=== PATIENT | female | born 1990 | race Caucasian/White ===

== ENCOUNTER 2017-11-07 10:09 | Emergency (ER) | payer MEDICAID ==
--- NOTE | 2017-11-07 10:23 | Emergency Department Record ---
History of Present Illness - General Chief complaint: Female Urogenital Problem Stated complaint: VAGINAL PAIN Time Seen by Provider: 11/07/17 10:19 Source: Patient Mode of Arrival: Ambulatory Limitations: No limitations - History of Present Illness Initial comments: 27 yo female presents with vaginal pain. She reports she has had similar symptoms over the last four years. The most recent episode started about 2-3 days ago. She has chronic sharp pain that started after the first delivery. She states an IUD was inserted too far and injured her. 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 No fever. She is currently on her menstrual cycle. She has not had an US since her pregnancies. She also has a hemorrhoid that causes pain. She has had a mild chronic whitish discharge. The patient reports she has scheduled a [facility] appointment in December in [place]. Complaint: Other (Vaginal pain) -: Month(s) (1) Location: Perineum Radiation: Other Severity: Moderate Quality: Sharp Consistency: Intermittent Improves with: None Worsens with: [place] Associated Symptoms: Other - Related Data Additional Female Hx Detail: Contraception Previous Rx's Medication Instructions Recorded Docusate Sodium [Colace] 100 mg PO DAILY #30 cap 11/07/17 Hydrocortisone Acetate [Anusol-Hc] 25 mg RC DAILY #14 supp.rect 11/07/17 Shelbie Merino [Hemorrhoidal 1 each TP BID #60 med..pad 11/07/17 Medicated Wipes] Allergies Allergy/AdvReac Type Severity Reaction Status Date / Time No Known Allergies Allergy PT UNSURE Verified 11/07/17 10:16 OF REACTION Review of Systems Constitutional: Denies: Chills, Fever, Malaise, Weakness Eyes: Denies: Eye discharge ENT: Denies: Congestion, Throat pain Respiratory: Denies: Cough, Dyspnea, Hemoptysis Cardiovascular: Denies: Chest pain, Syncope Endocrine: Denies: Fatigue Gastrointestinal: Reports: Abdominal pain. Denies: Diarrhea, Hematemesis, Hematochezia, Nausea, Vomiting Genitourinary: Reports: As per HPI, Dysuria. Denies: Frequency Musculoskeletal: Denies: Back pain Skin: Denies: Bruising, Change in color, Rash Neurological: Denies: Headache, Numbness, Weakness Psychiatric: Denies: Anxiety Hematological/Lymphatic: Denies: Easy bleeding, Easy bruising Physical Exam - General General Appearance: Alert, Oriented x3, Cooperative, No acute distress Limitations: No limitations - Head Head exam: Atraumatic, Normal inspection - Eye Eye exam: Normal appearance. negative: Conjunctival injection - ENT ENT exam: Normal exam Ear exam: Normal external inspection Nasal Exam: Normal inspection Mouth exam: Normal external inspection - Neck Neck exam: Normal inspection - GI/Abdominal GI/Abdominal exam: Soft. negative: Distended, Guarding, Rebound, Rigid - Rectal Rectal exam: Hemorrhoids (non thrombosed, non bleeding) - exam: Adnexal tenderness (L), Adnexal tenderness (R), Normal external exam, Vaginal bleeding, Vaginal discharge (thin white). negative: Adnexal mass (L), Adnexal mass (R), Cervical discharge, cervical motion tenderness, Vaginal erythema - Back Back exam: Reports: Normal inspection - Neurological Neurological exam: Alert, Oriented X3 - Psychiatric Psychiatric exam: Normal affect, Normal mood - Skin Skin exam: Dry, Intact, Normal color, Warm Course - Reevaluation(s) Reevaluation #1: The labs were negative The UA is negative Wet prep and HCG are negative Radiology was contacted. The patient is to return to the ED at 9:30am on Thursday for US. She was given instructions for prep prior to arrival We discussed being seen sooner if worse She was provided prescriptions for her hemorrhoid 11/07/17 11:56 Disposition Disposition: Discharge Clinical Impression: Pelvic pain Disposition: Home, Self-Care Condition: (1) Good Instructions: Hemorrhoids (ED), Pelvic Pain in Women (ED) Additional Instructions: Call your doctor on Thursday to be seen this week Return at 9:30am on Thursday for an US Drink 2 large glasses of water starting at 9. Do not urinate prior to the US Motrin as directed for pain Prescriptions: Docusate Sodium [Colace] 100 mg PO DAILY #30 cap Hydrocortisone Acetate [Anusol-Hc] 25 mg RC DAILY #14 supp.rect Witch Angelique [Hemorrhoidal Medicated Wipes] 1 each TP BID #60 med..pad Forms: Patient Portal Access Time of Disposition: 11:17 Quality - Quality Measures Quality Measures: N/A - Blood Pressure Screening Does Patient Have Any of the Following: No Blood Pressure Classification: Pre-Hypertensive BP Reading Systolic Measurement: 124 Diastolic Measurement: 87 Screening for High Blood Pressure: < Pre-Hypertensive BP, F/U Documented > [ G8950] Pre-Hypertensive Follow-up Interventions: Referral to alternative/primary care provider.
[2017-11-07] MEDS ORDERED: IBUPROFEN 600 MG TABLET PO ONE (10:36)
[2017-11-07 10:59] LABS: URINE APPEARANCE CLEAR; URINE BILIRUBIN NEGATIVE (NEGATIVE); URINE BLOOD SMALL (NEGATIVE); URINE COLOR YELLOW; URINE GLUCOSE (UA) NEGATIVE (NEGATIVE); URINE KETONE NEGATIVE (NEGATIVE); URINE LEUKOCYTE ESTERASE NEGATIVE (NEGATIVE); URINE NITRITE NEGATIVE (NEGATIVE); URINE PROTEIN NEGATIVE (NEGATIVE); URINE UROBILINOGEN 0.2 E.U./dL (0.20 - 1.00)
[2017-11-07 11:03] LABS: HCG,QUALITATIVE URINE NEGATIVE (NEGATIVE)
[2017-11-07 11:08] LABS: URINE WBC 0 - 2 (0-2/hpf)
[2017-11-07 11:09] LABS: URINE BACTERIA NONE SEEN; URINE MUCUS LIGHT
--- NOTE | 2017-11-07 16:51 | Emergency Department Record ---
History of Present Illness - General Chief complaint: Female Urogenital Problem Stated complaint: VAGINAL PAIN Time Seen by Provider: 11/07/17 10:19 Source: Patient Mode of Arrival: Ambulatory Limitations: No limitations - History of Present Illness Onset/Timin -: Month(s) (1) Location: Perineum Radiation: Other Severity: Moderate Severity scale (1-10): 8 Quality: Sharp Consistency: Intermittent Improves with: None Worsens with: [place] Patient : No Associated Symptoms: Other - Related Data Previous Rx's Medication Instructions Recorded Docusate Sodium [Colace] 100 mg PO DAILY #30 cap 11/07/17 Hydrocortisone Acetate 30 mg RC Q12H #15 supp.rect 11/07/17 Hydrocortisone Acetate [Anusol-Hc] 25 mg RC DAILY #14 supp.rect 11/07/17 Metronidazole [Flagyl] 500 mg PO BID #14 tablet 11/07/17 Witch Angelique [Hemorrhoidal 1 each TP BID #60 med..pad 11/07/17 Medicated Wipes] Allergies Allergy/AdvReac Type Severity Reaction Status Date / Time No Known Allergies Allergy PT UNSURE Verified 11/07/17 10:16 OF REACTION Travel Screening - Travel/Exposure Within Last 30 Days Have you traveled within the last 30 days?: No - Travel/Exposure Within Last Year Have you traveled outside the [place] in the last year?: No - Additonal Travel Details Have you been exposed to anyone with a communicable illness?: No - Travel Symptoms Symptom Screening: None Review of Systems Constitutional: Denies: Chills, Fever, Malaise, Weakness Eyes: Denies: Eye discharge ENT: Denies: Congestion, Throat pain Respiratory: Denies: Cough, Dyspnea, Hemoptysis Cardiovascular: Denies: Chest pain, Syncope Endocrine: Denies: Fatigue Gastrointestinal: Reports: Abdominal pain. Denies: Diarrhea, Hematemesis, Hematochezia, Nausea, Vomiting Genitourinary: Reports: As per HPI, Dysuria. Denies: Frequency Musculoskeletal: Denies: Back pain Skin: Denies: Bruising, Change in color, Rash Neurological: Denies: Headache, Numbness, Weakness Psychiatric: Denies: Anxiety Hematological/Lymphatic: Denies: Easy bleeding, Easy bruising Past Medical History - SOCIAL HISTORY Smoking Status: Never smoker Alcohol Use: None Drug Use: None - RESPIRATORY Hx Respiratory Disorders: No - CARDIOVASCULAR Hx Cardio Disorders: No - NEURO Hx Neuro Disorders: No - GI Hx GI Disorders: No - Hx Genitourinary Disorders: No - ENDOCRINE Hx Endocrine Disorders: No - MUSCULOSKELETAL Hx Musculoskeletal Disorders: No - PSYCH Hx Psych Problems: Yes Hx Anxiety: Yes - HEMATOLOGY/ONCOLOGY Hx Hematology/Oncology Disorders: No Family Medical History Any Significant Family History?: Yes Family Hx Comment (NOT TO BE USED IN PLACE OF ITEMS BELOW): Aunt is schizophrenic and bipolar Hx Anxiety: Father, Mother, Brother/Sister Hx Cancer: Mother, Grandparents Hx Depression: Father, Mother, Brother/Sister Hx Diabetes: Father, Mother, Grandparents Hx Heart Disease: Grandparents Physical Exam - General Limitations: No limitations Course Vital Signs 11/07/17 11/07/17 10:19 11:39 Temperature 98.1 F Pulse Rate 78 69 Respiratory 18 18 Rate Blood Pressure 144/99 124/87 Pulse Ox 100 98 - Reevaluation(s) Reevaluation #1: 11/07/17 16:50 Wet prep demonstrated clue cells The patient was called and informed about BV A prescription for Flagyl was called into her pharmacy Medical Decision Making - Lab Data Lab Results 11/07/17 11/07/17 Range/Units 10:50 10:50 Urine Color Yellow Urine Appearance Clear Urine pH 6.0 (5.0-8.0) Ur Specific [place] 1.025 (1.002-1.030) Urine Protein Negative (NEGATIVE) Urine Glucose (UA) Negative (NEGATIVE) Urine Ketones Negative (NEGATIVE) Urine Blood Small H (NEGATIVE) Urine Nitrite Negative (NEGATIVE) Urine Bilirubin Negative (NEGATIVE) Urine Urobilinogen 0.2 (0.20 - 1.00) E.U./dL Ur Leukocyte Esterase Negative (NEGATIVE) Urine RBC 3 - 6 (NONE SEEN) Urine WBC 0 - 2 (0-2/hpf) Ur Epithelial Cells 7 - 10 (FEW) Urine Bacteria None seen Urine Mucus Light Urine HCG, Qual Negative (NEGATIVE) Wet Prep (NONE SEEN) Disposition Disposition: Discharge Clinical Impression: Pelvic pain, Bacterial vaginosis Disposition: Home, Self-Care Condition: (1) Good Instructions: Hemorrhoids (ED), Pelvic Pain in Women (ED) Additional Instructions: Call your doctor on Thursday to be seen this week Return at 9:30am on Thursday for an US Drink 2 large glasses of water starting at 9. Do not urinate prior to the US Motrin as directed for pain Prescriptions: Docusate Sodium [Colace] 100 mg PO DAILY #30 cap Hydrocortisone Acetate [Anusol-Hc] 25 mg RC DAILY #14 supp.rect Hydrocortisone Acetate 30 mg RC Q12H #15 supp.rect Metronidazole [Flagyl] 500 mg PO BID #14 tablet Witch Angelique [Hemorrhoidal Medicated Wipes] 1 each TP BID #60 med..pad Forms: Patient Portal Access Time of Disposition: 16:51 Quality - Quality Measures Quality Measures: N/A - Blood Pressure Screening Does Patient Have Any of the Following: No Blood Pressure Classification: Pre-Hypertensive BP Reading Systolic Measurement: 124 Diastolic Measurement: 87 Screening for High Blood Pressure: < Pre-Hypertensive BP, F/U Documented > [ G8950] Pre-Hypertensive Follow-up Interventions: Referral to alternative/primary care provider.
[2017-11-09 15:18] LABS: GC SPECIMEN TYPE Vaginal
== END 2017-11-07 11:40 | disposition home or self-care (01) ==
LOC: ER 10:09
DX: N76.0 Acute vaginitis (principal); R01.2 Other cardiac sounds; K64.9 Unspecified hemorrhoids
CPT/HCPCS: 99284 ×2; 81001; 81025; Q0111; 87210

== ENCOUNTER 2017-11-08 07:27 | Emergency (ER) | payer MEDICAID ==
[2017-11-08] MEDS ORDERED: KETOROLAC 30 MG/ML VIAL IVP ONE (07:29)
[2017-11-08] MEDS ORDERED: ACETAMINOPHEN 1,000 MG/100 ML BTL IVPB ONE (07:39)
[2017-11-08] MEDS ORDERED: MORPHINE SULFATE 10 MG/ML VIAL IVP ONE ×2 (07:39→08:14)
--- NOTE | 2017-11-08 07:39 | Emergency Department Record ---
History of Present Illness - General Stated complaint: ABD PAIN Time Seen by Provider: 11/08/17 07:28 Source: Patient Mode of Arrival: Ambulatory Limitations: No limitations - History of Present Illness Initial comments: 27 yo female presents with pelvic pain. She has had pain on and off for 4 years. The pain increased the last 2-3 days. She was seen in the ED yesterday. Her testing demonstrated BV on wet prep otherwise negative. Negative for . Her pain was well controlled until early this morning around 4am. The pain is sharp and greatly increased. No fever. No bleeding. She feels like the pain is in the vaginal area in the middle or slightly to the left. She is currently on her menstrual cycle. No history of renal stones or ovarian cysts. MD Complaint: Pelvic pain -: Days(s) Location: Other (Pelvic) Severity: Severe Quality: Aching, Sharp Consistency: Constant Improves with: None Worsens with: None Associated Symptoms: Denies other symptoms - Related Data Previous Rx's Medication Instructions Recorded Docusate Sodium [Colace] 100 mg PO DAILY #30 cap 11/07/17 Hydrocortisone Acetate 30 mg RC Q12H #15 supp.rect 11/07/17 Hydrocortisone Acetate [Anusol-Hc] 25 mg RC DAILY #14 supp.rect 11/07/17 Metronidazole [Flagyl] 500 mg PO BID #14 tablet 11/07/17 Witch Angelique [Hemorrhoidal 1 each TP BID #60 med..pad 11/07/17 Medicated Wipes] Allergies Allergy/AdvReac Type Severity Reaction Status Date / Time No Known Allergies Allergy PT UNSURE Verified 11/07/17 10:16 OF REACTION Review of Systems Constitutional: Denies: Chills, Fever, Malaise, Weakness Eyes: Denies: Eye discharge ENT: Denies: Congestion, Throat pain Respiratory: Denies: Cough Cardiovascular: Denies: Chest pain, Syncope Endocrine: Denies: Fatigue Gastrointestinal: Reports: Abdominal pain. Denies: Diarrhea, Nausea, Vomiting Genitourinary: Denies: Dysuria Musculoskeletal: Denies: Arthralgia, Back pain, Myalgia Skin: Denies: Bruising, Change in color, Rash Neurological: Denies: Numbness, Weakness Psychiatric: Denies: Anxiety Hematological/Lymphatic: Denies: Blood Clots, Easy bleeding, Easy bruising Past Medical History - SOCIAL HISTORY Smoking Status: Never smoker Drug Use: None - RESPIRATORY Hx Respiratory Disorders: No - CARDIOVASCULAR Hx Cardio Disorders: No - NEURO Hx Neuro Disorders: No - GI Hx GI Disorders: No - Hx Genitourinary Disorders: No - ENDOCRINE Hx Endocrine Disorders: No - MUSCULOSKELETAL Hx Musculoskeletal Disorders: No - PSYCH Hx Psych Problems: Yes Hx Anxiety: Yes - HEMATOLOGY/ONCOLOGY Hx Hematology/Oncology Disorders: No Family Medical History Family Hx Comment (NOT TO BE USED IN PLACE OF ITEMS BELOW): Aunt is schizophrenic and bipolar Hx Anxiety: Father, Mother, Brother/Sister Hx Cancer: Mother, Grandparents Hx Depression: Father, Mother, Brother/Sister Hx Diabetes: Father, Mother, Grandparents Hx Heart Disease: Grandparents Physical Exam - General General Appearance: Alert, Oriented x3, Cooperative, Anxious Limitations: No limitations - Head Head exam: Atraumatic, Normal inspection - Eye Eye exam: Normal appearance. negative: Conjunctival injection, Scleral icterus - ENT ENT exam: Normal exam Ear exam: Normal external inspection Nasal Exam: Normal inspection Mouth exam: Normal external inspection - Neck Neck exam: Normal inspection - Respiratory Respiratory exam: Normal lung sounds bilaterally. negative: Respiratory distress - Cardiovascular Cardiovascular Exam: Regular rate, Normal rhythm, Normal heart sounds - GI/Abdominal GI/Abdominal exam: Soft, Tenderness (tender deep pelvic midline to left, soft) - Extremities Extremities exam: Normal inspection - Back Back exam: Denies: CVA tenderness (R), CVA tenderness (L) - Neurological Neurological exam: Alert, Oriented X3 - Psychiatric Psychiatric exam: Normal affect, Normal mood - Skin Skin exam: Dry, Intact, Normal color, Warm Course - Reevaluation(s) Reevaluation #1: 11/08/17 07:34 EMR reviewed from yesterday. Negative HCG Wet prep positive for clue cells 11/08/17 07:44 I recommend US this morning given the return of pain. She agrees with transfer to [facility] for US evaluation [facility] was contacted for transfer Dr Bates of the [facility] ED accepts the patient for US and further work up of the pelvic pain. We discussed possible [employer] consult if needed or CT if needed as well. 11/08/17 08:01 CBC reviewed. HGB is 14 Medical Decision Making - Lab Data Result diagrams: 11/08/17 07:40 11/08/17 07:40 Disposition Disposition: Transfer Clinical Impression: Pelvic pain Disposition: Acute Care Hospital Transfer Transfer To: [facility] Reason For Transfer: Pelvic Pain Accepting Physician: Paulo Time Discussed w/Accepting Physician: 07:48 Condition: (2) Stable Time of Disposition: 07:48 Quality - Quality Measures Quality Measures: N/A - Blood Pressure Screening Does Patient Have Any of the Following: No Blood Pressure Classification: Hypertensive Reading Systolic Measurement: 146 Diastolic Measurement: 77 Screening for High Blood Pressure: < Pre-Hypertensive BP, F/U Documented > [ G8950] Pre-Hypertensive Follow-up Interventions: Referral to alternative/primary care provider.
[2017-11-08 07:54] LABS: BASO % 0.6 % (0-6); EOS % 3.8 % (0-6); GRAN % 51.2 % (47-80); HEMATOCRIT 44.1 % (35.0-47.0); HEMOGLOBIN 14.6 gm/dl (11.6-16.0); LYMPH % 38.6 % (16-45); MEAN CELL VOLUME 89.8 fl (81-97); MEAN CORPUSCULAR HEMOGLOBIN 29.7 pg (27-33); MEAN CORPUSCULAR HGB CONC 33.1 g/dl (32-36); MEAN PLATELET VOLUME 10.4 fl (7.4-10.4); MONO % 5.8 % (0-9); PLATELET COUNT 299 K/uL (130-400); RED BLOOD COUNT 4.91 M/uL (3.80-5.40); RED CELL DISTRIBUTION WIDTH 12.5 % (11.5-14.5); WHITE BLOOD COUNT W/O DIFF 6.3 K/uL (4.2-12.2)
[2017-11-08 08:08] LABS: BLOOD UREA NITROGEN 10 mg/dL (6-20); CREATININE 0.7 mg/dL (0.5-0.9); EST GLOMERULAR FILTRATION RATE > 60 mL/min
[2017-11-08 08:11] LABS: GLUCOSE,RANDOM 86 mg/dL (74-109)
== END 2017-11-08 08:26 | disposition short-term general hospital (02) ==
LOC: ER 07:27
DX: R10.2 Pelvic and perineal pain (principal)
CPT/HCPCS: 99285 ×2; 96365; 96375; 85025; 80048; 84703; J1885; J2270

== ENCOUNTER 2017-12-05 11:11 | Emergency (ER) | payer MEDICAID ==
--- NOTE | 2017-12-05 11:28 | Emergency Department Record ---
History of Present Illness - General Chief complaint: Nausea, Vomiting, Diarrhea Stated complaint: NAUSEA,DIZZY Source: Patient Mode of Arrival: Ambulatory Limitations: No limitations - History of Present Illness Initial comments: 27 yo female presents with four days of nausea, diarrhea, hot flashes. She has also had an itchy rash on the chest. She started prednisone yesterday. The rash is improving. No vomiting. No fevers or abdominal pain. No dysuria. No sore throat. No blood in the vomit or diarrhea. She hot flashes seem to correlate with the episodes of nausea and diarrhea. She has had some intermittent left flank pain. None currently. MD complaint: Diarrhea, Nausea, Vomiting, Other (hot flashes) -: Days(s) (4) Description of Vomiting: Watery Description of Diarrhea: Water Location: Flank (Left) Radiation: None Severity: Mild Quality: Other Consistency: Intermittent Improves with: None Worsens with: Eating Context: Other Associated Symptoms: Nausea/vomiting, Other (diarrhea, rash. hot flashes) - Related Data Previous Rx's Medication Instructions Recorded Ondansetron [Zofran Odt] 4 mg PO Q8H #15 tab.rapdis 12/05/17 Allergies Allergy/AdvReac Type Severity Reaction Status Date / Time cephalexin monohydrate Allergy Mild nausea Verified 12/05/17 11:20 [From Keflex] Review of Systems Constitutional: Reports: Malaise. Denies: Chills, Fever, Night sweats, Weakness Eyes: Denies: Eye discharge, Eye pain, Vision change ENT: Denies: Congestion, Throat pain Respiratory: Denies: Cough, Dyspnea Cardiovascular: Denies: Chest pain, Dyspnea on exertion, Edema Endocrine: Reports: Fatigue. Denies: Polydipsia, Polyuria Gastrointestinal: Reports: As per HPI, Diarrhea, Nausea. Denies: Abdominal pain , Constipation, Hematemesis, Hematochezia, Vomiting Genitourinary: Denies: Dysuria Musculoskeletal: Reports: Back pain (left sided). Denies: Arthralgia, Myalgia Skin: Reports: As per HPI, Change in color, Rash. Denies: Bruising Neurological: Denies: Headache, Numbness, Weakness Psychiatric: Reports: Anxiety Hematological/Lymphatic: Denies: Easy bleeding, Easy bruising Past Medical History - SOCIAL HISTORY Smoking Status: Never smoker Drug Use: None - RESPIRATORY Hx Respiratory Disorders: No - CARDIOVASCULAR Hx Cardio Disorders: No - NEURO Hx Neuro Disorders: No - GI Hx GI Disorders: No - Hx Genitourinary Disorders: No - ENDOCRINE Hx Endocrine Disorders: No - MUSCULOSKELETAL Hx Musculoskeletal Disorders: No - PSYCH Hx Psych Problems: Yes Hx Anxiety: Yes - HEMATOLOGY/ONCOLOGY Hx Hematology/Oncology Disorders: No Family Medical History Family Hx Comment (NOT TO BE USED IN PLACE OF ITEMS BELOW): Aunt is schizophrenic and bipolar Hx Anxiety: Father, Mother, Brother/Sister Hx Cancer: Mother, Grandparents Hx Depression: Father, Mother, Brother/Sister Hx Diabetes: Father, Mother, Grandparents Hx Heart Disease: Grandparents Physical Exam - General General Appearance: Alert, Oriented x3, Cooperative, No acute distress Limitations: No limitations - Head Head exam: Normal inspection - Eye Eye exam: Normal appearance, PERRL. negative: Conjunctival injection, Scleral icterus - ENT ENT exam: Normal exam, Mucous membranes moist Ear exam: Normal external inspection Nasal Exam: Normal inspection Mouth exam: Normal external inspection Teeth exam: Normal inspection Throat exam: Normal inspection, Tonsillar erythema. negative: Tonsillomegaly - Neck Neck exam: Normal inspection, Full ROM. negative: Tenderness - Respiratory Respiratory exam: Normal lung sounds bilaterally. negative: Respiratory distress - Cardiovascular Cardiovascular Exam: Regular rate, Normal rhythm, Normal heart sounds. negative : Tachycardia - GI/Abdominal GI/Abdominal exam: Soft. negative: Distended, Guarding, Rebound, Rigid, Tenderness - Rectal Rectal exam: Deferred - exam: Deferred - Extremities Extremities exam: Normal inspection. negative: Calf tenderness, Full ROM, Pedal edema, Tenderness - Back Back exam: Reports: Normal inspection. Denies: CVA tenderness (R), CVA tenderness (L) - Neurological Neurological exam: Alert, Oriented X3 - Psychiatric Psychiatric exam: Normal affect, Normal mood - Skin Skin exam: Dry, Intact, Rash, Warm. negative: Normal color Distribution of rash: Chest Description of rash: Erythematous, Macular, Papular, Urticarial. negative: Crusting, Discharge, Indurated, Petechial, Purpuic, Tenderness, Vesicular Course - Reevaluation(s) Reevaluation #1: 12/05/17 11:53 HCG is negative 12/05/17 12:15 The labs were reviewed No acute changes on the labs The nausea is well controlled UA is negative for signs of acute infection 12/05/17 12:[address] scan and US from 11/08 were reviewed from [facility]. Both tests were negative for acute process. No indication for emergent CT today with the possible radiation exposure. Recommend follow renal US if the left flank pain continues. 12/05/17 12:41 12/05/17 13:03 The patient is doing much better. Well controlled nausea. We discussed the results, reasons to return, and follow up. Rx for Zofran provided. Medical Decision Making - Lab Data Result diagrams: 12/05/17 11:40 12/05/17 11:40 Disposition Disposition: Discharge Clinical Impression: Nausea, Diarrhea, Urticaria Disposition: Home, Self-Care Condition: (1) Good Instructions: Acute Nausea and Vomiting (ED) Additional Instructions: Take the Zofran as needed for the nausea Rest and stay well hydrated Return if you have fever, pain, uncontrolled vomiting or any new concerns Follow up as scheduled with your doctor Prescriptions: Ondansetron [Zofran Odt] 4 mg PO Q8H #15 tab.rapdis Forms: Patient Portal Access Time of Disposition: 12:41 Quality - Quality Measures Quality Measures: N/A - Blood Pressure Screening Does Patient Have Any of the Following: No Blood Pressure Classification: Hypertensive Reading Systolic Measurement: 135 Diastolic Measurement: 96 Screening for High Blood Pressure: < Pre-Hypertensive BP, F/U Documented > [ G8950] Pre-Hypertensive Follow-up Interventions: Referral to alternative/primary care provider.
[2017-12-05] MEDS ORDERED: 0.9 % SODIUM CHLORIDE 1,000 ML BAG IV ONE (11:31)
[2017-12-05] MEDS ORDERED: ONDANSETRON HCL IV 4 MG/2 ML VIAL IVP ONE (11:31)
[2017-12-05 11:43] LABS: URINE APPEARANCE CLEAR; URINE BILIRUBIN NEGATIVE (NEGATIVE); URINE BLOOD MODERATE (NEGATIVE); URINE COLOR YELLOW; URINE GLUCOSE (UA) NEGATIVE (NEGATIVE); URINE KETONE NEGATIVE (NEGATIVE); URINE LEUKOCYTE ESTERASE NEGATIVE (NEGATIVE); URINE NITRITE NEGATIVE (NEGATIVE); URINE PROTEIN TRACE (NEGATIVE); URINE UROBILINOGEN 0.2 E.U./dL (0.20 - 1.00)
[2017-12-05 11:49] LABS: HEMATOCRIT 43.7 % (35.0-47.0); HEMOGLOBIN 14.4 gm/dl (11.6-16.0); MEAN CORPUSCULAR HEMOGLOBIN 29.3 pg (27-33); PLATELET COUNT 307 K/uL (130-400); RED BLOOD COUNT 4.91 M/uL (3.80-5.40); RED CELL DISTRIBUTION WIDTH 12.2 % (11.5-14.5); WHITE BLOOD COUNT W/O DIFF 11.1 K/uL (4.2-12.2)
[2017-12-05 11:51] LABS: URINE BACTERIA NONE SEEN; URINE WBC 0 - 2 (0-2/hpf)
[2017-12-05 11:52] LABS: HCG,QUALITATIVE URINE NEGATIVE (NEGATIVE); URINE MUCUS LIGHT
[2017-12-05 11:59] LABS: BLOOD UREA NITROGEN 15 mg/dL (6-20); CREATININE 0.6 mg/dL (0.5-0.9); EST GLOMERULAR FILTRATION RATE > 60 mL/min
[2017-12-05 12:00] LABS: PLATELET ESTIMATE NORMAL (NORMAL); TOTAL PROTEIN 8.5 g/dL (6.6-8.7)
[2017-12-05 12:02] LABS: GLUCOSE,RANDOM 123 mg/dL (74-109)
[2017-12-05 12:05] LABS: ALB/GLOB RATIO 1.4 (1.1-1.8); ALBUMIN 4.9 g/dL (4.0-5.0); ALKALINE PHOSPHATASE 41 U/L (35-104); ALT/SGPT 14 U/L (<33); AST/SGOT 15 U/L (10.0-35.0)
[2017-12-05] MEDS ORDERED: KETOROLAC 30 MG/ML VIAL IVP ONE (12:40)
[2017-12-05] MEDS ORDERED: ONDANSETRON 4 MG ODT TABLET SL ONE (13:03)
== END 2017-12-05 13:19 | disposition home or self-care (01) ==
LOC: ER 11:11
DX: L50.9 Urticaria, unspecified (principal); R11.2 Nausea with vomiting, unspecified; R19.7 Diarrhea, unspecified; R42 Dizziness and giddiness
CPT/HCPCS: 80053; 81001; 81025; 85027; 96361; 96374; 96375; 99284; J1885; J2405; J7030

== ENCOUNTER 2018-02-13 15:32 | Emergency (ER) | payer MEDICAID ==
--- NOTE | 2018-02-13 16:01 | Emergency Department Record ---
History of Present Illness - General Chief complaint: Female Urogenital Problem Stated complaint: FEMALE ISSUES Time Seen by Provider: 02/13/18 15:55 Source: Patient, RN notes reviewed Mode of Arrival: Ambulatory - History of Present Illness Initial comments: vaginal and rectal pain which started 1 day ago but she had this before and told by her airport ramp agent it is endometroisis. Dr. Hackett in [facility]. Patient is vaginal bleeding and MD Complaint: Pelvic pain, Vaginal bleeding Onset/Timin -: Days(s) Worsens with: Urination LMP Date: 02/09/18 Gestational Age (wks) based on LMP: 0 Associated Symptoms: Dysuria, Other - Related Data Previous Rx's Medication Instructions Recorded Naproxen [Naprosyn] 500 mg PO BID #30 tablet 02/13/18 Allergies Allergy/AdvReac Type Severity Reaction Status Date / Time cephalexin monohydrate Allergy Mild nausea Verified 02/13/18 15:51 [From [employer]] Travel Screening - Travel/Exposure Within Last 30 Days Have you traveled within the last 30 days?: No - Travel/Exposure Within Last Year Have you traveled outside the [place] in the last year?: No - Additonal Travel Details Have you been exposed to anyone with a communicable illness?: No - Travel Symptoms Symptom Screening: None Review of Systems Reviewed: No additional complaints except as noted below Constitutional: Reports: As per HPI. Denies: Chills, Fever, Malaise, Night sweats, Weakness, Weight change Eyes: Reports: As per HPI. Denies: Eye discharge, Eye pain, Photophobia, Vision change ENT: Reports: As per HPI. Denies: Congestion, Dental pain, Ear pain, Epistaxis , Hearing loss, Throat pain Respiratory: Reports: As per HPI. Denies: Cough, Dyspnea, Hemoptysis, Stridor, Wheezes Cardiovascular: Reports: As per HPI. Denies: Arrhythmia, Chest pain, Dyspnea on exertion, Edema, Murmurs, Orthopnea, Palpitations, Paroxysmal nocturnal dyspnea, Rheumatic Fever, Syncope Endocrine: Reports: As per HPI. Denies: Fatigue, Heat or cold intolerance, Polydipsia, Polyuria Gastrointestinal: Reports: As per HPI. Denies: Abdominal pain, Constipation, Diarrhea, Hematemesis, Hematochezia, Melena, Nausea, Vomiting Genitourinary: Reports: As per HPI. Denies: Abnormal menses, Discharge, Dyspareunia, Dysuria, Frequency, Hematuria, Incontinence, Retention, Urgency Musculoskeletal: Reports: As per HPI. Denies: Arthralgia, Back pain, Gout, Joint swelling, Myalgia, Neck pain Skin: Reports: As per HPI. Denies: Bruising, Change in color, Change in hair/ nails, Lesions, Pruritus, Rash Neurological: Reports: As per HPI. Denies: Abnormal gait, Confusion, Headache, Numbness, Paresthesias, Seizure, Tingling, Tremors, Vertigo, Weakness Psychiatric: Reports: As per HPI. Denies: Anxiety, Auditory hallucinations, Depression, Homicidal thoughts, Suicidal thoughts, Visual hallucinations Hematological/Lymphatic: Reports: As per HPI. Denies: Anemia, Blood Clots, Easy bleeding, Easy bruising, Swollen glands Past Medical History - SOCIAL HISTORY Smoking Status: Former smoker Alcohol Use: Rare Drug Use: None - RESPIRATORY Hx Respiratory Disorders: Yes Hx Asthma: Yes Hx Bronchitis: Yes - CARDIOVASCULAR Hx Cardio Disorders: No - NEURO Hx Neuro Disorders: No - GI Hx GI Disorders: No - Hx Genitourinary Disorders: Yes Hx UTI: Yes Comment:: kidney infection - ENDOCRINE Hx Endocrine Disorders: No - MUSCULOSKELETAL Hx Musculoskeletal Disorders: No - PSYCH Hx Psych Problems: Yes Hx Anxiety: Yes Hx Depression: Yes - HEMATOLOGY/ONCOLOGY Hx Hematology/Oncology Disorders: No Family Medical History Any Significant Family History?: No Family Hx Comment (NOT TO BE USED IN PLACE OF ITEMS BELOW): Aunt is schizophrenic and bipolar Hx Anxiety: Father, Mother, Brother/Sister Hx Cancer: Mother, Grandparents Hx Depression: Father, Mother, Brother/Sister Hx Diabetes: Father, Mother, Grandparents Hx Heart Disease: Grandparents Physical Exam - General General Appearance: Alert, Oriented x3, Cooperative, No acute distress - Head Head exam: Normal inspection - Eye Eye exam: Normal appearance, PERRL Pupils: Normal accommodation - ENT ENT exam: Normal exam, Mucous membranes moist, Normal external ear exam, Normal orophraynx, TM's normal bilaterally Ear exam: Normal external inspection. negative: External canal tenderness Nasal Exam: Normal inspection. negative: Discharge, Sinus tenderness Mouth exam: Normal external inspection, Tongue normal Teeth exam: Normal inspection. negative: Dental caries Throat exam: Normal inspection. negative: Tonsillar erythema, Tonsillar exudate - Neck Neck exam: Normal inspection, Full ROM. negative: Tenderness - Respiratory Respiratory exam: Normal lung sounds bilaterally. negative: Respiratory distress - Cardiovascular Cardiovascular Exam: Regular rate, Normal rhythm, Normal heart sounds - GI/Abdominal GI/Abdominal exam: Soft, Normal bowel sounds. negative: Tenderness - Rectal Rectal exam: Deferred - exam: Deferred, cervical motion tenderness, Normal speculum exam, Vaginal bleeding (dark red to black). negative: Adnexal mass (L), Adnexal mass (R), Adnexal tenderness (L), Adnexal tenderness (R) - Extremities Extremities exam: Normal inspection, Full ROM, Normal capillary refill. negative: Tenderness - Back Back exam: Reports: Normal inspection, Full ROM. Denies: Muscle spasm, Rash noted, Tenderness - Neurological Neurological exam: Alert, Normal gait, Oriented X3, Reflexes normal - Psychiatric Psychiatric exam: Normal affect, Normal mood - Skin Skin exam: Dry, Intact, Normal color, Warm Course Vital Signs 02/13/18 15:49 Temperature 98.8 F Pulse Rate [ 113 H Pulse Ox Probe] Respiratory 18 Rate Blood Pressure 132/89 [Left Arm] Pulse Ox 98 - Reevaluation(s) Reevaluation #1: improved some and will start on naprosyn 02/13/18 16:45 Medical Decision Making - Lab Data Result diagrams: 02/13/18 16:16 02/13/18 16:16 Disposition Clinical Impression: Pelvic pain Disposition: Home, Self-Care Condition: (1) Good Instructions: Endometriosis (ED) Additional Instructions: follow up with airport ramp agent Dr next week naprosyn 500 mg twice a day. Prescriptions: Naproxen [Naprosyn] 500 mg PO BID #30 tablet Forms: Patient Portal Access Time of Disposition: 16:41 Quality - Quality Measures Quality Measures: N/A - Blood Pressure Screening Does Patient Have Any of the Following: No Blood Pressure Classification: Pre-Hypertensive BP Reading Systolic Measurement: 132 Diastolic Measurement: 89 Screening for High Blood Pressure: < Pre-Hypertensive BP, F/U Documented > [ G8950] Pre-Hypertensive Follow-up Interventions: Referral to alternative/primary care provider.
[2018-02-13 16:08] LABS: URINE APPEARANCE CLEAR; URINE BILIRUBIN NEGATIVE (NEGATIVE); URINE BLOOD MODERATE (NEGATIVE); URINE COLOR YELLOW; URINE GLUCOSE (UA) NEGATIVE (NEGATIVE); URINE KETONE NEGATIVE (NEGATIVE); URINE LEUKOCYTE ESTERASE NEGATIVE (NEGATIVE); URINE NITRITE NEGATIVE (NEGATIVE); URINE PROTEIN NEGATIVE (NEGATIVE); URINE UROBILINOGEN 0.2 E.U./dL (0.20 - 1.00)
[2018-02-13] MEDS ORDERED: 0.9 % SODIUM CHLORIDE 1,000 ML BAG IV ONE (16:08)
[2018-02-13 16:11] LABS: HCG,QUALITATIVE URINE NEGATIVE (NEGATIVE)
[2018-02-13] MEDS ORDERED: KETOROLAC 30 MG/ML VIAL IVP ONE (16:15)
[2018-02-13 16:18] LABS: URINE BACTERIA FEW; URINE SQUAMOUS EPITHELIAL CELL 0 - 2 /hpf; URINE WBC 0 - 2 (0-2/hpf)
[2018-02-13] MEDS ORDERED: LORAZEPAM 2 MG/ML VIAL IV ONE (16:40)
[2018-02-13 16:41] LABS: BASO % 0.9 % (0-6); EOS % 6.2 % (0-6); GRAN % 54.2 % (47-80); HEMATOCRIT 43.4 % (35.0-47.0); HEMOGLOBIN 14.5 gm/dl (11.6-16.0); LYMPH % 31.8 % (16-45); MEAN CELL VOLUME 88.9 fl (81-97); MEAN CORPUSCULAR HEMOGLOBIN 29.7 pg (27-33); MEAN CORPUSCULAR HGB CONC 33.4 g/dl (32-36); MEAN PLATELET VOLUME 9.8 fl (7.4-10.4); MONO % 6.9 % (0-9); PLATELET COUNT 290 K/uL (130-400); RED BLOOD COUNT 4.88 M/uL (3.80-5.40); RED CELL DISTRIBUTION WIDTH 11.9 % (11.5-14.5); WHITE BLOOD COUNT W/O DIFF 6.8 K/uL (4.2-12.2)
[2018-02-13 16:50] LABS: BLOOD UREA NITROGEN 10 mg/dL (6-20)
[2018-02-13 16:51] LABS: CREATININE 0.6 mg/dL (0.5-0.9); EST GLOMERULAR FILTRATION RATE > 60 mL/min
[2018-02-13 16:53] LABS: GLUCOSE,RANDOM 87 mg/dL (74-109)
[2018-02-15 17:46] LABS: GC SPECIMEN TYPE Cervix
== END 2018-02-13 16:58 | disposition home or self-care (01) ==
LOC: ER 15:32
DX: R10.2 Pelvic and perineal pain (principal); R30.0 Dysuria; Z87.891 Personal history of nicotine dependence
CPT/HCPCS: 99284 ×2; 96374; 96375; 85025; 80048; 81001; 81025; Q0111; J1885; J2060; 87210; J7030

== ENCOUNTER 2018-04-11 11:41 | Emergency (ER) | payer MEDICAID ==
[2018-04-11] MEDS ORDERED: DEXAMETHASONE SOD PHOSPHATE 10MG/ML VIAL PO ONE (11:52)
[2018-04-11] MEDS ORDERED: ONDANSETRON 4 MG ODT TABLET SL ONE ×2 (11:52→13:34)
--- NOTE | 2018-04-11 11:53 | Emergency Department Record ---
History of Present Illness - General Chief complaint: ENT Stated complaint: HEADACHE, SWOLLEN THROAT,NAUSEA Time Seen by Provider: 04/11/18 11:52 Source: Patient, Family Mode of Arrival: Ambulatory Limitations: No limitations - History of Present Illness Initial comments: 28 yo female presents with sore throat, congestion, and nausea. No vomiting. No diarrhea. No rash. Two of her children are experiencing the same symptoms. She is not a smoker. No shortness of breath. No FLU shot this year. MD complaint: Sore throat, Other (Nausea) Location: Other Severity: Moderate Quality: Aching Consistency: Constant Improves with: None Worsens with: Swallowing Context- Ear: Recent illness Associated Symptoms: Cough, Rhinorrhea, Sore throat - Related Data Allergies Allergy/AdvReac Type Severity Reaction Status Date / Time cephalexin monohydrate Allergy Mild nausea Verified 04/11/18 11:58 [From Kef[employer]] Review of Systems Constitutional: Reports: Fever, Malaise. Denies: Chills Eyes: Denies: Eye discharge ENT: Reports: Congestion, Throat pain Respiratory: Reports: Cough. Denies: Dyspnea, Hemoptysis, Stridor, Wheezes Cardiovascular: Denies: Chest pain, Syncope Endocrine: Denies: Fatigue Gastrointestinal: Reports: Nausea. Denies: Abdominal pain, Diarrhea, Vomiting Genitourinary: Denies: Dysuria, Urgency Musculoskeletal: Denies: Arthralgia, Back pain, Myalgia Skin: Denies: Bruising, Change in color, Rash Neurological: Reports: Headache. Denies: Confusion, Numbness, Weakness Psychiatric: Denies: Anxiety Hematological/Lymphatic: Denies: Easy bleeding, Easy bruising, Swollen glands Past Medical History - SOCIAL HISTORY Smoking Status: Former smoker Drug Use: None - RESPIRATORY Hx Respiratory Disorders: Yes Hx Asthma: Yes Hx Bronchitis: Yes - CARDIOVASCULAR Hx Cardio Disorders: No - NEURO Hx Neuro Disorders: No - GI Hx GI Disorders: No - Hx Genitourinary Disorders: Yes Hx UTI: Yes Comment:: kidney infection - ENDOCRINE Hx Endocrine Disorders: No - MUSCULOSKELETAL Hx Musculoskeletal Disorders: No - PSYCH Hx Psych Problems: Yes Hx Anxiety: Yes Hx Depression: Yes - HEMATOLOGY/ONCOLOGY Hx Hematology/Oncology Disorders: No Family Medical History Family Hx Comment (NOT TO BE USED IN PLACE OF ITEMS BELOW): Aunt is schizophrenic and bipolar Hx Anxiety: Father, Mother, Brother/Sister Hx Cancer: Mother, Grandparents Hx Depression: Father, Mother, Brother/Sister Hx Diabetes: Father, Mother, Grandparents Hx Heart Disease: Grandparents Physical Exam - General General Appearance: Alert, Oriented x3, Cooperative, No acute distress Limitations: No limitations - Head Head exam: Atraumatic, Normal inspection - Eye Eye exam: Normal appearance. negative: Conjunctival injection - ENT ENT exam: Normal exam, Mucous membranes moist, Normal orophraynx, TM's normal bilaterally Ear exam: Normal external inspection Nasal Exam: Normal inspection Mouth exam: Normal external inspection Teeth exam: Normal inspection Throat exam: Tonsillar erythema. negative: Tonsillomegaly, Tonsillar exudate, R peritonsillar mass, L peritonsillar mass, Other - Neck Neck exam: Normal inspection, Full ROM. negative: Lymphadenopathy, Meningismus , Tenderness - Respiratory Respiratory exam: Normal lung sounds bilaterally. negative: Respiratory distress, Rhonchi, Stridor, Wheezes - Cardiovascular Cardiovascular Exam: Regular rate, Normal rhythm, Normal heart sounds - GI/Abdominal GI/Abdominal exam: Soft. negative: Tenderness - Rectal Rectal exam: Deferred - exam: Deferred - Extremities Extremities exam: Normal inspection - Back Back exam: Denies: CVA tenderness (R), CVA tenderness (L) - Neurological Neurological exam: Alert, Oriented X3 - Psychiatric Psychiatric exam: Normal affect, Normal mood - Skin Skin exam: Dry, Intact, Normal color, Warm Course - Reevaluation(s) Reevaluation #1: 04/11/18 12:54 Influenza negative Likely still viral in etiology Well appearing. Supportive treatment at home Disposition Disposition: Discharge Clinical Impression: Pharyngitis Disposition: Home, Self-Care Condition: (1) Good Instructions: Pharyngitis (ED) Additional Instructions: Call your doctor for the next available follow up appointment Return to the ER for a recheck if worse, any new concerns or questions Review this ER visit and the tests performed with your family doctor Forms: Patient Portal Access Time of Disposition: 12:25 Quality - Quality Measures Quality Measures: N/A - Blood Pressure Screening Does Patient Have Any of the Following: No Blood Pressure Classification: Pre-Hypertensive BP Reading Systolic Measurement: 138 Diastolic Measurement: 87 Screening for High Blood Pressure: < Pre-Hypertensive BP, F/U Documented > [ G8950] Pre-Hypertensive Follow-up Interventions: Referral to alternative/primary care provider.
[2018-04-11 12:20] LABS: INFLUENZA A NEGATIVE (NEGATIVE); INFLUENZA B NEGATIVE (NEGATIVE)
== END 2018-04-11 12:45 | disposition home or self-care (01) ==
LOC: ER 11:41
DX: J02.9 Acute pharyngitis, unspecified (principal); R11.0 Nausea; Z87.891 Personal history of nicotine dependence
CPT/HCPCS: 87400; J1100; 99282

== ENCOUNTER 2018-04-26 23:01 | Emergency (ER) | payer MEDICAID ==
--- NOTE | 2018-04-26 23:33 | Emergency Department Record ---
History of Present Illness - General Chief complaint: Female Urogenital Problem Stated complaint: LARGE BLOOD CLOT Time Seen by Provider: 04/26/18 23:24 Source: Patient Mode of Arrival: Ambulatory Limitations: No limitations - History of Present Illness Initial comments: 28 yo female presents to ED for evaluation of a large blood clot passed vaginally this evening. Patient reports a history of irregular menses due to nuva ring usage prescribed by her OB for possible endomitriosis. Patient reports a lapse in her nuva ring use resulting in menses that began 2.5 weeks ago, however she became nervous after passing a large clot. Patient has an appointment with her OB in 12 hours. MD Complaint: Vaginal bleeding Onset/Timin -: Minutes(s) Severity: Moderate Severity scale (1-10): 5 Quality: Aching Consistency: Constant Improves with: None Patient : No Associated Symptoms: Abdominal pain, Vaginal bleeding - Related Data Sexually active: Yes Allergies Allergy/AdvReac Type Severity Reaction Status Date / Time cephalexin monohydrate Allergy Mild nausea Verified 04/11/18 11:58 [From [employer]] Travel Screening - Travel/Exposure Within Last 30 Days Have you traveled within the last 30 days?: No - Travel Symptoms Symptom Screening: None Review of Systems Constitutional: Denies: Chills, Fever, Malaise, Night sweats Eyes: Denies: Eye discharge, Eye pain ENT: Denies: Congestion, Ear pain, Epistaxis Respiratory: Denies: Cough, Dyspnea Cardiovascular: Denies: Chest pain, Dyspnea on exertion Endocrine: Denies: Fatigue Gastrointestinal: Denies: Abdominal pain, Nausea, Vomiting Genitourinary: Reports: Abnormal menses. Denies: Incontinence, Retention Musculoskeletal: Denies: Arthralgia, Back pain Skin: Denies: Bruising, Change in color Neurological: Denies: Abnormal gait, Confusion, Seizure Psychiatric: Denies: Anxiety Hematological/Lymphatic: Denies: Anemia, Blood Clots Past Medical History - SOCIAL HISTORY Smoking Status: Former smoker Alcohol Use: None Drug Use: None - RESPIRATORY Hx Respiratory Disorders: Yes Hx Asthma: Yes Hx Bronchitis: Yes - CARDIOVASCULAR Hx Cardio Disorders: No - NEURO Hx Neuro Disorders: No - GI Hx GI Disorders: No - Hx Genitourinary Disorders: Yes Hx UTI: Yes Comment:: kidney infection - ENDOCRINE Hx Endocrine Disorders: No - MUSCULOSKELETAL Hx Musculoskeletal Disorders: No - PSYCH Hx Psych Problems: Yes Hx Anxiety: Yes Hx Depression: Yes - HEMATOLOGY/ONCOLOGY Hx Hematology/Oncology Disorders: No Family Medical History Any Significant Family History?: Yes Family Hx Comment (NOT TO BE USED IN PLACE OF ITEMS BELOW): Aunt is schizophrenic and bipolar Hx Anxiety: Father, Mother, Brother/Sister Hx Cancer: Mother, Grandparents Hx Depression: Father, Mother, Brother/Sister Hx Diabetes: Father, Mother, Grandparents Hx Heart Disease: Grandparents Physical Exam - General General Appearance: Alert, Oriented x3, Cooperative, Anxious Limitations: No limitations - Head Head exam: Atraumatic, Normocephalic, Normal inspection Head exam detail: negative: Abrasion, Contusion, Umanzor's sign, General tenderness, Hematoma, Laceration - Eye Eye exam: Normal appearance. negative: Conjunctival injection, Periorbital swelling, Periorbital tenderness, Scleral icterus - ENT Ear exam: negative: Auricular hematoma, Auricular trauma Nasal Exam: negative: Active bleeding, Discharge, Dried blood, Foreign body Mouth exam: negative: Drooling, Laceration, Muffled voice, Tongue elevation - Neck Neck exam: Normal inspection. negative: Meningismus, Tenderness - Respiratory Respiratory exam: Normal lung sounds bilaterally. negative: Rales, Respiratory distress, Rhonchi, Stridor - Cardiovascular Cardiovascular Exam: Regular rate, Normal rhythm, Normal heart sounds - GI/Abdominal GI/Abdominal exam: Soft. negative: Rebound, Rigid, Tenderness - Rectal Rectal exam: Deferred - exam: Deferred - Extremities Extremities exam: Normal inspection. negative: Calf tenderness, Pedal edema, Tenderness - Back Back exam: Denies: CVA tenderness (R), CVA tenderness (L) - Neurological Neurological exam: Alert, Normal gait, Oriented X3 - Psychiatric Psychiatric exam: Anxious - Skin Skin exam: Normal color. negative: Abrasion Type of lesion: negative: abrasion Course Vital Signs 04/26/18 23:15 Pulse Rate [ 109 H Pulse Ox Probe] Respiratory 20 Rate Blood Pressure 136/90 [Left Arm] Pulse Ox 100 - Reevaluation(s) Reevaluation #1: 04/26/18 23:39 I explained at length to the patient that not having a menses for 8-12 weeks will result in thickened uterine lining and heavier bleeding with menses. Patient is nervous about removing her nuva ring as it resulted in painful menses previously. I recommended following up with her OB in 12 hours as scheduled for further evaluation. Patient has no clinical signs of significant blood loss (normal vitals) and appears stable for discharge at this time. Disposition Disposition: Discharge Clinical Impression: Dysfunctional uterine bleeding Disposition: Home, Self-Care Condition: (2) Stable Instructions: Dysfunctional Uterine Bleeding (ED) Additional Instructions: Return to ED if your symptoms worsen or if you have any concerns. Follow-up with your OB in 12 hours as scheduled. Forms: Patient Portal Access Time of Disposition: 23:33 Quality - Quality Measures Quality Measures: N/A - Blood Pressure Screening Does Patient Have Any of the Following: No Blood Pressure Classification: Hypertensive Reading Systolic Measurement: 136 Diastolic Measurement: 90 Screening for High Blood Pressure: < First Hypertensive BP, F/U Documented > [ G8950] First Hypertensive Follow-up Interventions: Referral to alternative/primary care provider.
== END 2018-04-26 23:44 | disposition home or self-care (01) ==
LOC: ER 23:01
DX: N93.8 Other specified abnormal uterine and vaginal bleeding (principal); Z87.891 Personal history of nicotine dependence
CPT/HCPCS: 99282

== ENCOUNTER 2018-06-23 19:34 | Emergency (ER) | payer MEDICAID ==
[2018-06-23] MEDS ORDERED: IBUPROFEN 600 MG TABLET PO ONE (20:22)
[2018-06-23] MEDS ORDERED: ONDANSETRON 4 MG ODT TABLET SL ONE (20:22)
--- NOTE | 2018-06-23 20:23 | Emergency Department Record ---
History of Present Illness - General Chief complaint: Nausea, Vomiting, Diarrhea Stated complaint: VOMITTING, DIARRHEA Time Seen by Provider: 06/23/18 19:54 Source: Patient Mode of Arrival: Ambulatory - History of Present Illness Initial comments: The patient states that she has had nausea, vomiting, and diarrhea for the past 3 days which began with one of her kids. They all went to see someone in [place] and were given zofran, but were not told to stay on clear liquids. Mom ate and fed her kids hotdogs, beans and applesauce for dinner tonight and their symptoms worsened after dinner. MD complaint: Diarrhea, Nausea, Vomiting Onset/Timin -: Days(s) Description of Vomiting: Food contents, Watery Associated Abdominal Pain: No Severity scale (1-10): 6 Quality: Stabbing Consistency: Intermittent Improves with: None Worsens with: Movement Associated Symptoms: Denies other symptoms - Related Data Allergies Allergy/AdvReac Type Severity Reaction Status Date / Time cephalexin monohydrate Allergy Mild nausea Verified 04/11/18 11:58 [From [employer]] Travel Screening - Travel/Exposure Within Last 30 Days Have you traveled within the last 30 days?: No - Travel/Exposure Within Last Year Have you traveled outside the [place] in the last year?: No - Additonal Travel Details Have you been exposed to anyone with a communicable illness?: No - Travel Symptoms Symptom Screening: None Review of Systems Reviewed: No additional complaints except as noted below Constitutional: Reports: As per HPI. Denies: Chills, Fever, Malaise, Night sweats, Weakness, Weight change Eyes: Reports: As per HPI. Denies: Eye discharge, Eye pain, Photophobia, Vision change ENT: Reports: As per HPI. Denies: Congestion, Dental pain, Ear pain, Epistaxis , Hearing loss, Throat pain Respiratory: Reports: As per HPI. Denies: Cough, Dyspnea, Hemoptysis, Stridor, Wheezes Cardiovascular: Reports: As per HPI. Denies: Arrhythmia, Chest pain, Dyspnea on exertion, Edema, Murmurs, Orthopnea, Palpitations, Paroxysmal nocturnal dyspnea, Rheumatic Fever, Syncope Endocrine: Reports: As per HPI. Denies: Fatigue, Heat or cold intolerance, Polydipsia, Polyuria Gastrointestinal: Reports: As per HPI. Denies: Abdominal pain, Constipation, Diarrhea, Hematemesis, Hematochezia, Melena, Nausea, Vomiting Genitourinary: Reports: As per HPI. Denies: Abnormal menses, Discharge, Dyspareunia, Dysuria, Frequency, Hematuria, Incontinence, Retention, Urgency Musculoskeletal: Reports: As per HPI. Denies: Arthralgia, Back pain, Gout, Joint swelling, Myalgia, Neck pain Skin: Reports: As per HPI. Denies: Bruising, Change in color, Change in hair/ nails, Lesions, Pruritus, Rash Neurological: Reports: As per HPI. Denies: Abnormal gait, Confusion, Headache, Numbness, Paresthesias, Seizure, Tingling, Tremors, Vertigo, Weakness Psychiatric: Reports: As per HPI. Denies: Anxiety, Auditory hallucinations, Depression, Homicidal thoughts, Suicidal thoughts, Visual hallucinations Hematological/Lymphatic: Reports: As per HPI. Denies: Anemia, Blood Clots, Easy bleeding, Easy bruising, Swollen glands Past Medical History - SOCIAL HISTORY Smoking Status: Former smoker Alcohol Use: None Drug Use: None - RESPIRATORY Hx Respiratory Disorders: Yes Hx Asthma: Yes Hx Bronchitis: Yes - CARDIOVASCULAR Hx Cardio Disorders: No - NEURO Hx Neuro Disorders: No - GI Hx GI Disorders: No - Hx Genitourinary Disorders: Yes Hx UTI: Yes Comment:: kidney infection - ENDOCRINE Hx Endocrine Disorders: No - MUSCULOSKELETAL Hx Musculoskeletal Disorders: No - PSYCH Hx Psych Problems: Yes Hx Anxiety: Yes Hx Depression: Yes - HEMATOLOGY/ONCOLOGY Hx Hematology/Oncology Disorders: No Family Medical History Any Significant Family History?: Yes Family Hx Comment (NOT TO BE USED IN PLACE OF ITEMS BELOW): Aunt is schizophrenic and bipolar Hx Anxiety: Father, Mother, Brother/Sister Hx Cancer: Mother, Grandparents Hx Depression: Father, Mother, Brother/Sister Hx Diabetes: Father, Mother, Grandparents Hx Heart Disease: Brother/Sister, Grandparents Physical Exam - General General Appearance: Alert, Oriented x3, Cooperative, No acute distress - Head Head exam: Normal inspection - Eye Eye exam: Normal appearance, PERRL, EOMI. negative: Conjunctival injection, Nystagmus Pupils: Normal accommodation - ENT ENT exam: Normal exam, Mucous membranes moist, Normal external ear exam, Normal orophraynx, TM's normal bilaterally Ear exam: Normal external inspection. negative: External canal tenderness Nasal Exam: Normal inspection. negative: Discharge, Sinus tenderness Mouth exam: Normal external inspection, Tongue normal Teeth exam: Normal inspection. negative: Dental caries Throat exam: Normal inspection. negative: Tonsillar erythema, Tonsillar exudate - Neck Neck exam: Normal inspection, Full ROM. negative: Lymphadenopathy, Meningismus , Tenderness - Respiratory Respiratory exam: Normal lung sounds bilaterally. negative: Accessory muscle use, Respiratory distress - Cardiovascular Cardiovascular Exam: Regular rate, Normal rhythm, Normal heart sounds. negative : Tachycardia - GI/Abdominal GI/Abdominal exam: Soft, Normal bowel sounds. negative: Tenderness - Rectal Rectal exam: Deferred - exam: Deferred - Extremities Extremities exam: Normal inspection, Full ROM, Normal capillary refill. negative: Calf tenderness, Pedal edema, Tenderness - Back Back exam: Reports: Normal inspection, Full ROM. Denies: Muscle spasm, Rash noted, Tenderness - Neurological Neurological exam: Alert, CN II-XII intact, Normal gait, Oriented X3, Reflexes normal. negative: Motor sensory deficit - Psychiatric Psychiatric exam: Normal affect, Normal mood - Skin Skin exam: Dry, Intact, Normal color, Warm. negative: Rash Course Vital Signs 06/23/18 19:56 Temperature 98.1 F Pulse Rate [ 98 H Pulse Ox Probe] Respiratory 18 Rate Blood Pressure 138/86 [Left Arm] Pulse Ox 98 - Reevaluation(s) Reevaluation #1: Mom states that she has enough zofran for home and does not need a script. She has had two glasses of water without vomiting and is ready for discharge. 06/23/18 20:50 Medical Decision Making - Management Options MDM Management: No Additional Work-up Planned Disposition Disposition: Discharge Clinical Impression: Nausea vomiting and diarrhea Disposition: Home, Self-Care Condition: (1) Good Instructions: Acute Nausea and Vomiting (ED), Acute Diarrhea (ED), Dehydration (ED) Additional Instructions: If any vomiting or diarrhea, remain on clear liquids only for that day. Push fluids. Take zofran as directed for nausea. Tylenol or ibuprofen as directed as needed for pain or fevers. PCP follow up as needed. Forms: Patient Portal Access Quality - Quality Measures Quality Measures: N/A - Blood Pressure Screening Does Patient Have Any of the Following: No Blood Pressure Classification: Pre-Hypertensive BP Reading Systolic Measurement: 138 Diastolic Measurement: 86 Screening for High Blood Pressure: < Pre-Hypertensive BP, F/U Documented > [ [id number]] Pre-Hypertensive Follow-up Interventions: Follow-up with rescreen every year.
== END 2018-06-23 21:13 | disposition home or self-care (01) ==
LOC: ER 19:34
DX: R11.2 Nausea with vomiting, unspecified (principal); R19.7 Diarrhea, unspecified
CPT/HCPCS: 99282